=== PATIENT | male | born 1995 | race Caucasian/White ===

== ENCOUNTER 2020-09-11 06:22 | Emergency (ER) | payer OTHER ==
[~2020-09-11] VITALS: Ht 167.6 cm; Wt 89.4 kg
[2020-09-11 06:33] VITALS: BP 144/91
--- NOTE | 2020-09-11 06:44 | PHYS DOC ---
General Adult EDM: Chief Complaint: MECHANICAL FALL HPI: HPI: Patient is a 25-year-old male who presented to ER for evaluation of upper back pain and chest pain after he tripped and fell backward hit his upper back against a metal door knob. Patient denies any head or neck injury. Patient denies any loss of consciousness. Patient denies any numbness or weakness anywhere. Patient complains of mid UPPER back pain, denies trouble breathing. Review of Systems: Review of Systems: Constitutional: Denies fever or chills Eyes: Denies change in visual acuity HENT: Denies nasal congestion or sore throat Respiratory: Denies cough or shortness of breath Cardiovascular: Denies chest pain or edema GI: Denies abdominal pain, nausea, vomiting, bloody stools or diarrhea : Denies dysuria Musculoskeletal: POSITIVE FOR MID UPPER BACK PAIN. Integument: Denies rash Neurologic: Denies headache, focal weakness or sensory changes Endocrine: Denies polyuria or polydipsia Lymphatic: Denies swollen glands Psychiatric: Denies depression or anxiety Allergies: Allergies: Allergies Coded Allergies Type Severity Reaction Last Updated Verified No Known Drug Allergies 09/11/20 No Physical Exam: PE: Constitutional: Well developed, well nourished, no acute distress, non-toxic appearance. [] HENT: Normocephalic, atraumatic, bilateral external ears normal, oropharynx moist, no oral exudates, nose normal. [] Eyes: PERRLA, EOMI, conjunctiva normal, no discharge. [] Neck: Normal range of motion, no tenderness, supple, no stridor. [] Cardiovascular:Heart rate regular rhythm, no murmur [] Lungs & Thorax: Bilateral breath sounds clear to auscultation. No crepitus. Abdomen: Bowel sounds normal, soft, no tenderness, no masses, no pulsatile masses. [] Skin: Warm, dry, no erythema, no rash. [] Back: There is midline tenderness to palpation at T5/T6 Area, no bony step off, no CVA tenderness. [] Extremities: No tenderness, no cyanosis, no clubbing, ROM intact, no edema. [] Neurologic: Alert and oriented X 3, normal motor function, normal sensory function, no focal deficits noted. [] Psychologic: Affect normal, judgement normal, mood normal. [] EKG: EKG: [] Radiology/Procedures: Radiology/Procedures: [][address] [address] IMAGING REPORT Signed PATIENT: HUGO KLINEUNT: [id number] : 1995 LOCATION: ER AGE: 25 SEX: M EXAM STATUS: REG ER ORD. PHYSICIAN: MILLER BAINS DO REASON: FELL, HIT UPPER BACK ON [place], CHEST PAIN PROCEDURE: CHEST PA & LATERAL EXAMINATION: Chest and thoracic spine radiograph. VIEWS: 2 views of the chest and 3 views of thoracic spine obtained COMPARISON: None INDICATION: Trauma FINDINGS: CHEST: Normal cardiomediastinal silhouette. No focal consolidation. No pleural effusion or pneumothorax. No acute osseous process. THORACIC SPINE: The vertebral bodies are normal in height and alignment. Intervertebral disc spaces are preserved. No acute fracture, or subluxation. Paravertebral soft tissue is unremarkable. IMPRESSION: 1. No acute cardiopulmonary process. 2. No acute osseous process in the thoracic spine. Electronically signed by: Nicholas Pro MD (09/11/2020 7:13 AM) [id number] DICTATED AND SIGNED BY: NICHOLAS PRO MD DATE: 09/11/20709 CC: PCP,UNKNOWN; MILLER BAINS DO ~MTH0 0 Heart Score: C/O Chest Pain: N/A Risk Factors: Risk Factors: DM, Current or recent (<one month) smoker, HTN, HLP, family history of CAD, obesity. Risk Scores: Score 0 - 3: 2.5% MACE over next 6 weeks - Discharge Home Score 4 - 6: 20.3% MACE over next 6 weeks - Admit for Clinical Observation Score 7 - 10: 72.7% MACE over next 6 weeks - Early Invasive Strategies Course & Med Decision Making: Course & Med Decision Making Pertinent Labs and Imaging studies reviewed. (See chart for details) [] Aranza Disclaimer: Aranza Disclaimer: This electronic medical record was generated, in whole or in part, using a voice recognition dictation system. Departure Departure: Impression: Primary Impression: Contusion of back Additional Impression: Contusion of back wall of thorax Disposition: HOME / SELF CARE / HOMELESS Condition: STABLE Referrals: PCP,UNKNOWN (PCP) Follow up with your doctor as needed Patient Instructions: Chest Contusion, [id number], Contusion Additional Instructions: Thank you for visiting our Emergency Department. We appreciate you trusting us with your care. If any additional problems come up don't hesitate to return to visit us. Please follow up with your primary care provider so they can plan additional care if needed and know about the problem that you had. If symptoms worsen come back to the Emergency Department. Any concerning symptoms that start such as chest pain, shortness of air, weakness or numbness on one side of the body, running high fevers or any other concerning symptoms return to the ER. MILLER BAINS DO September 11, 2020 06:44
--- NOTE | 2020-09-11 07:15 | RAD ---
EXAMINATION: Chest and thoracic spine radiograph. VIEWS: 2 views of the chest and 3 views of thoracic spine obtained COMPARISON: None INDICATION: Trauma FINDINGS: CHEST: Normal cardiomediastinal silhouette. No focal consolidation. No pleural effusion or pneumothor ax. No acute osseous process. THORACIC SPINE: The vertebral bodies are normal in height and alignment. Intervertebral disc spaces a re preserved. No acute fracture, or subluxation. Paravertebral soft tissue is unremarkable. IMPRESSION: 1. No acute cardiopulmonary process. 2. No acute osseous process in the thoracic spine. Electronically signed by: Anuel Pro MD (09/11/2020 7:13 AM) [id number]
== END 2020-09-11 07:33 | disposition home or self-care (01) ==
LOC: ER 06:22
DX: S20.224A Contusion of middle back wall of thorax, initial encounter (principal); W01.0XXA Fall on same level from slipping, tripping and stumbling without subsequent striking against object, initial encounter; Y93.89 Activity, other specified; Y92.89 Other specified places as the place of occurrence of the external cause; Y99.8 Other external cause status
CPT/HCPCS: 71046; 72072; 99284